=== PATIENT | female | born 1950 | race Caucasian/White ===

== ENCOUNTER 2020-05-06 17:37 | Emergency (ER) | payer MEDICARE, OTHER, SELFPAY ==
[2020-05-06 17:49] VITALS: BP 128/72; PULSE 74; RESP 19; TEMP 36.8; O2SAT 99; BMI 30.2
--- NOTE | 2020-05-06 17:59 | DI.US.S_ITS ---
PROCEDURE: US PERIPH VENOUS LOW EXTREM RT INDICATIONS: EDEMA, PAIN 6 DAYS POST RIGHT TKA TECHNIQUE: Real-time imaging, as well as color and pulse Doppler interrogation, were performed of the lower extremity deep veins from the inguinal ligament to the popliteal fossa. COMPARISON: None. FINDINGS: The common femoral, femoral and popliteal veins are normally compressible, and free of intraluminal thrombus. Color and pulse Doppler demonstrate normal phasic intraluminal flow. There is normal augmentation response to distal compression maneuver. IMPRESSION: No DVT in the right lower extremity. Dictated by: Royal Arias M.D. on 05/06/2020 at 19:06 Approved by: Royal Arias M.D. on 05/06/2020 at 19:07
--- NOTE | 2020-05-06 19:14 | ED.EXTPRO ---
HPI - Extremity Problem General Chief complaint: Extremity Problem,Nontraumatic Stated complaint: pain and redness right jones, bruised Time Seen by Provider: 05/06/20 18:09 Source: patient Mode of arrival: Family Vehicle Limitations: no limitations History of Present Illness HPI Narrative: Patient is a 69-year-old female who presents with right leg pain is and swelling. She is postop day number 6 from a total knee arthroplasty in [facility]. She said she was released from a hospital the following day is since had increasing swelling. Yesterday she noticed that her lower leg is slightly erythematous and extremely sensitive to touch is. The bandage has 1 site of seepage but no surrounding erythema. She has not had any fever or chills. MD Complaint: extremity pain and extremity swelling Related Data Home Medications Medication Instructions Recorded Confirmed aspirin [Adult Low Dose Aspirin] 81 mg PO DAILY 05/06/20 05/06/20 Previous Rx's Medication Instructions Recorded cephalexin [Keflex] 500 mg PO TID #21 cap 05/06/20 Allergies Allergy/AdvReac Type Severity Reaction Status Date / Time codeine Allergy ITCHING Verified 05/06/20 17:57 doxycycline Allergy Rash Verified 05/06/20 17:57 hydrocodone Allergy ITCHING Verified 05/06/20 17:57 meclofenamic acid Allergy ITCHING Verified 05/06/20 17:57 [From Meclomen] nitrofurantoin Allergy ITCHING Verified 05/06/20 17:57 [From Macrodantin] oxycodone Allergy ITCHING Verified 05/06/20 17:57 Review of Systems Review of Systems Narrative: GENERAL: Denies chills, fatigue, malaise, fever, sweats, travel HEENT: Denies sinus pain, ear pain, sore throat, difficulty swallowing, neck pain RESPIRATORY: Denies dyspnea, cough, wheezing, hemoptysis, sputum. CARDIOVASCULAR: Denies chest pain, palpitations, orthopnea, edema GASTROINTESTINAL: Denies nausea, vomiting, abdominal pain, diarrhea, constipation, melena. : Denies dysuria, frequency, incontinence, hematuria, urinary retention, flank pain. MUSCULOSKELETAL: Denies weakness, joint pain, or bony pain SKIN: See HPI NEUROLOGIC: Denies weakness, dizziness, headache, numbness, change in speech, confusion PSYCHIATRIC: No concerning psychosocial issues. 12 point review of systems is negative except for those stated above and HPI Patient History Social History Smoking Status: Never smoker Smoking Status: Never smoker alcohol intake frequency: 0-2 drinks per day Alcohol type: wine Substance Use Type: does not use Exam Initial Vital Signs Initial Vital Signs: Vital Signs Temperature 98.2 F 05/06/20 17:49 Pulse Rate 74 05/06/20 17:49 Respiratory Rate 19 05/06/20 17:49 Blood Pressure 128/72 05/06/20 17:49 Pulse Oximetry 99 05/06/20 17:49 GENERAL: Well-appearing, well-nourished and in no acute distress. HEENT: Head atraumatic,EOMI, pupils reactive, face symmetric, moist mucous membranes CARDIOVASCULAR: Regular rate and rhythm without murmurs, rubs or gallops. RESPIRATORY: Breath sounds equal bilaterally, no wheezes rales or rhonchi. ABDOMEN: Soft, nontender. Normoactive bowel sounds all 4 quadrants. No guarding or rebound. EXTREMITIES: Normal range of motion, no clubbing or edema. Neurovascularly intact The swelling noted of right leg decreased range of movement of right knee. Minimal erythema just above ankle to mid jones. This is very sensitive to touch previous scars are noted no erythema over the incision site. Distal pedal pulse is felt she does have some contusion around the right heel. NEUROLOGICAL: Alert and oriented x4.Normal gait and speech. SKIN: Warm, dry, no laceration, no petechiae, no rashes or lesions. Course Orders Ordered: ED Orders 05/06/20 17:59 US periph venous low extrem rt Stat 05/06/20 20:00 C-Reactive Protein Quant Stat Complete Blood Count AUTO DIFF Stat Comprehensive Metabolic Panel Stat Erythrocyte Sedimentation Rate Stat Procalcitonin Stat 05/06/20 20:30 Blood Culture Stat Discontinued Medications Cefazolin Sodium (Cephalexin 250 Mg Prepack) 1 bottle MISC SEEINSTR ONE Stop: 05/06/20 21:57 Last Admin: 05/06/20 22:06 Dose: 250 mg Documented by: ZULEYKA Ketorolac Tromethamine (Ketorolac 60 Mg/2 Ml Vial) 30 mg IV NOW ONE Stop: 05/06/20 21:48 Last Admin: 05/06/20 21:58 Dose: 30 mg Documented by: ZULEYKA Tramadol HCl (Tramadol 50 Mg Tablet) 50 mg PO NOW ONE Stop: 05/06/20 21:48 Last Admin: 05/06/20 21:58 Dose: 50 mg Documented by: ZULEYKA Vital Signs Vital signs: Vital Signs - 8 hr 05/06/20 17:49 05/06/20 22:20 Temperature 98.2 F Pulse Rate 74 79 Respiratory Rate 19 14 Blood Pressure 128/72 133/69 Pulse Oximetry 99 98 MDM - Extremity (Nontraumatic) Lab Data Result diagrams: 05/06/20 20:00 05/06/20 20:00 Labs: Lab Results 05/06/20 05/06/20 05/06/20 Range/Units 20:00 20:00 20:00 WBC 6.9 (4.5-11.0) X10^3/uL RBC 3.56 L (4.0-5.2) X10^6/uL Hgb 12.1 (12.0-16.0) g/dL Hct 35.6 L (36-46) % MCV 100.2 H (80-100) fL MCH 34.0 (26-34) PG MCHC 33.9 (30-36) % RDW 13.0 (11.6-14.8) % Plt Count 319 (150-400) X10^3/uL Neut % (Auto) 60.5 (50-75) % Lymph % (Auto) 23.9 L (25-40) % Mayes % (Auto) 12.5 (3-14) % Eos % (Auto) 2.2 (2-4) % Baso % (Auto) 0.9 (0-2) % Neut # (Auto) 4200 (7279-8830) /uL Lymph # (Auto) 1700 (7493-1793) /uL Mayes # (Auto) 900 (0-900) /uL Eos # (Auto) 200 (0-450) /uL Baso # (Auto) 100 (0-100) /uL ESR 35 H (0-20) MM/HR Sodium 135 L (137-145) mmol/L Potassium 4.6 (3.4-5.1) mmol/L Chloride 103 (98-107) mmol/L Carbon Dioxide 30 (22-32) mmol/L BUN 18 H (7-17) mg/dL Creatinine 0.54 (0.52-1.04) mg/dL Estimated GFR > 60.0 (>60) mL/min BUN/Creatinine Ratio 33.3 H (6-22) Glucose 97 (80-110) mg/dL Calcium 9.2 (8.4-10.2) mg/dL Total Bilirubin 0.8 (0.2-1.3) mg/dL AST 31 (14-36) IU/L ALT 27 (<35) IU/L Alkaline Phosphatase 87 (38-126) U/L C-Reactive Protein 2.3 H (<1.0) mg/dL Total Protein 7.0 (6.3-8.2) g/dL Albumin 3.9 (3.5-5.0) g/dL Globulin 3.1 (1.7-4.1) g/dL Albumin/Globulin Ratio 1.3 (1.0-2.8) Procalcitonin < 0.05 (<0.5) ng/mL Imaging Data US - DVT: Radiologist's Impression: PROCEDURE: US PERIPH VENOUS LOW EXTREM RT INDICATIONS: EDEMA, PAIN 6 DAYS POST RIGHT TKA TECHNIQUE: Real-time imaging, as well as color and pulse Doppler interrogation, were performed of the lower extremity deep veins from the inguinal ligament to the popliteal fossa. COMPARISON: None. FINDINGS: The common femoral, femoral and popliteal veins are normally compressible, and free of intraluminal thrombus. Color and pulse Doppler demonstrate normal phasic intraluminal flow. There is normal augmentation response to distal compression maneuver. IMPRESSION: No DVT in the right lower extremity. Dictated by: Royal Arias M.D. on 05/06/2020 at 19:06 MDM Narrative Medical decision making narrative: Patient is a not have a DVT. She has erythema on her anterior jones which at appears to be quite sensitive to touch and new this looks like cellulitis. There does not appear to be any infection over the incision or the joint. No sign of sepsis. No DVT is found 2144 Dr. Cho orthopedic magnetic resonance imaging director for her orthopedic has been updated patient's symptoms test results agrees with starting her on Keflex for a probable cellulitis. Discharge Plan Departure Patient Disposition: Home Clinical Impression: Cellulitis of leg, right Instructions: DI for Cellulitis -- Adult Activity Restrictions/Additional Instructions: *You have been diagnosed with cellulitis right anterior leg *What to do: Start taking antibiotics. Monitor for worsening redness specifically over the incision or joint. *Continue to take medications as directed Keflex 500 mg 3 times a day for 7 days *Follow up with your primary care provider in 2-3 days Follow-up with your Orthopedics as previously scheduled for this week *Return to ER if you should have increasing redness, pain, fever or any new, worsening or concerning symptoms Prescriptions: New cephalexin [Keflex] 500 mg capsule 500 mg PO TID Qty: 21 RF: 0 No Action Adult Low Dose Aspirin 81 mg Tablet 81 mg PO DAILY RF: 0
[2020-05-06 20:07] LABS: Add Manual Diff / Slide Review NO; Basophils Absolute Auto 100 /uL (0-100); Basophils Percent Auto 0.9 % (0-2); Eosinophils Absolute Auto 200 /uL (0-450); Eosinophils Percent Auto 2.2 % (2-4); Hematocrit 35.6 % (36-46); Hemoglobin 12.1 g/dL (12.0-16.0); Lymphocytes Absolute Auto 1700 /uL (1100-4500); Lymphocytes Percent Auto 23.9 % (25-40); Mean Corpuscular HGB Conc 33.9 % (30-36); Mean Corpuscular Volume 100.2 fL (80-100); Monocytes Absolute Auto 900 /uL (0-900); Monocytes Percent Auto 12.5 % (3-14); Neutrophils Absolute Auto 4200 /uL (1500-7000); Neutrophils Percent Auto 60.5 % (50-75); Platelet Count 319 X10^3/uL (150-400); Red Blood Cell Count 3.56 X10^6/uL (4.0-5.2); White Blood Cell Count 6.9 X10^3/uL (4.5-11.0)
[2020-05-06 20:23] LABS: Alanine Aminotransferase 27 IU/L (<35); Albumin 3.9 g/dL (3.5-5.0); Albumin Globulin Ratio 1.3 (1.0-2.8); Alkaline Phosphatase 87 U/L (38-126); Aspartate Aminotransferase 31 IU/L (14-36); BUN Creatinine Ratio 33.3 (6-22); Bilirubin Total 0.8 mg/dL (0.2-1.3); Blood Urea Nitrogen 18 mg/dL (7-17); C-Reactive Protein Quant 2.3 mg/dL (<1.0); Calcium 9.2 mg/dL (8.4-10.2); Carbon Dioxide 30 mmol/L (22-32); Chloride 103 mmol/L (98-107); Estimated Glomerular Filt Rate > 60.0 mL/min (>60); Globulin 3.1 g/dL (1.7-4.1); Glucose 97 mg/dL (80-110); HEMOLYSIS < 15 (0-50); Potassium 4.6 mmol/L (3.4-5.1); Sodium 135 mmol/L (137-145)
[2020-05-06 20:50] LABS: Erythrocyte Sedimentation Rate 35 MM/HR (0-20); Procalcitonin < 0.05 ng/mL (<0.5)
[2020-05-06] MEDS: KETOROLAC 60 MG/2 ML VIAL 30 MG IV (21:58)
[2020-05-06] MEDS: TRAMADOL 50 MG TABLET PO (21:58)
[2020-05-06] MEDS: cephALEXin 250 MG PREPACK 1 BOTTLE MISC (22:06)
[2020-05-06 22:20] VITALS: BP 133/69; PULSE 79; RESP 14; O2SAT 98
== END 2020-05-06 22:23 | disposition home or self-care (01) ==
PROVIDERS: Emergency Provider Emergency Medicine
DX: L03.115 Cellulitis of right lower limb (principal); Z96.651 Presence of right artificial knee joint
CPT/HCPCS: 36415; 80053; 84145; 85025; 85651; 86140; 87040; 93971; 96374; 99283; 99284; J1885

== ENCOUNTER → 2020-11-15 11:00 | Outpatient (CLI) | payer MEDICARE, OTHER, SELFPAY | PROVIDERS: Referring Provider Orthopaedic Surgery; Visit Provider Orthopaedic Surgery | DX: M54.2 Cervicalgia (principal) | CPT/HCPCS: 95886; 95910 ==

== ENCOUNTER → 2022-06-19 11:21 | Outpatient (CLI) | payer MEDICARE, OTHER, SELFPAY ==
--- NOTE | 2022-06-19 | DI.MRI.S_ITS ---
PROCEDURE: MR LUMBAR SPINE WO CON INDICATIONS: Radiculopathy, lumbar region TECHNIQUE: Noncontrast sagittal T1 spin echo and T2 fast echo, sagittal STIR, and T2 fast spin echo through the lumbar spine. In cases with scoliosis, additional coronal T2 fast spin echo may be performed. COMPARISON: None. FINDINGS: Image quality: Excellent. Alignment and Curvature: There is normal bony alignment. Bone Marrow: Degenerative chronic endplate changes present, particularly at L2-3 Spinal Cord: Conus medullaris terminates at the L1 level. Visualized cord demonstrates normal signal and size. Paraspinous Soft Tissues: No paravertebral masses. T12-L1: Normal appearance. L1-L2: Disc space narrowing and circumferential disc bulge with hypertrophic facet joints results in moderate central stenosis. Moderate right and left foraminal stenosis present. L2-L3: Disc space narrowing and circumferential disc bulge results in mild central stenosis. Moderate bilateral foraminal stenosis L3-L4: Disc space narrowing and circumferential disc bulge with hypertrophic facet joints present. Mild central stenosis. Moderate bilateral foraminal stenosis. Possible small 2-3 mm disc fragment noted in the right lateral recess on image 5/19 L4-L5: Disc space narrowing and posterior asymmetric right disc bulge combines with hypertrophic facet joints results in effacement of the right lateral recess. Moderate bilateral foraminal stenosis. L5-S1: Normal appearance. IMPRESSION: Multilevel degenerative disc disease and arthropathy results in varying degrees of central and foraminal stenosis including moderate central stenosis at L1-2. Possible small 2-3 mm disc fragment present in the right lateral recess of L3-4 Approved by: Orion Pollard M.D. on 06/19/2022 at 17:37
== END ==
PROVIDERS: Referring Provider Physical Medicine & Rehabilitation Pain Medicine; Visit Provider Physical Medicine & Rehabilitation Pain Medicine
DX: M51.16 Intervertebral disc disorders with radiculopathy, lumbar region (principal); M47.26 Other spondylosis with radiculopathy, lumbar region; M48.061 Spinal stenosis, lumbar region without neurogenic claudication
CPT/HCPCS: 72148

== ENCOUNTER → 2022-10-16 09:22 | Outpatient (CLI) | payer MEDICARE, OTHER, SELFPAY ==
--- NOTE | 2022-10-16 09:23 | DI.RAD.S_ITS ---
PROCEDURE: XR KUB INDICATIONS: Kidney stones TECHNIQUE: One view of the abdomen acquired. COMPARISON: [facility] [place], CR, XR LUMBAR SPINE WITH OBLIQUES PLUS FLEXION EXTENSION, 06/10/2022, 11:33. FINDINGS: Surgical changes and devices: None. Bowel: Bowel gas pattern is nonobstructive. Soft tissues: Multiple oval densities project over the left abdomen. There is a 1.0 cm oval calcification projecting just medial to the left iliac crest seen on the prior lumbar spine radiographic series. Remaining oval densities are less dense compared to the calcification and also project over bowel. Findings may represent additional soft tissue calcifications versus dense ingested material within bowel. Visualized solid organ contours appear normal in size. Bones: No suspicious bony lesions. IMPRESSION: 1. Multiple oval densities projecting over the left abdomen and left lower pelvis. These are noted within areas of bowel and may represent ingested material. Of these densities, there is a stable 1.0 cm oval calcification projecting medial to the left iliac crest which may represent a urolith. No prior cross-sectional imaging available to confirm. Dictated by: Oskar Tyler M.D. on 10/16/2022 at 13:41 Approved by: Oskar Tyler M.D. on 10/16/2022 at 13:53
== END ==
PROVIDERS: PCP Family Medicine; Referring Provider Urology; Visit Provider Urology
DX: N20.0 Calculus of kidney (principal); N39.46 Mixed incontinence; R35.0 Frequency of micturition; R30.0 Dysuria; Z87.440 Personal history of urinary (tract) infections; Z87.442 Personal history of urinary calculi; Z98.890 Other specified postprocedural states; Z92.29 Personal history of other drug therapy
CPT/HCPCS: 74018; 99214

== ENCOUNTER → 2022-10-24 13:16 | Outpatient (CLI) | payer MEDICARE, OTHER, SELFPAY ==
[2022-10-24 13:51] LABS: Bacteria Urine Moderate (10-30); Culture Indicated Urine Specimen Cultured; RBC Urine None Seen (0-5/HPF); Squamous Epithelial Cell Urine 0-1 /HPF (0-5/HPF); WBC Urine 30-100/HPF (0-5/HPF)
== END ==
PROVIDERS: PCP Family Medicine; Referring Provider Specialist; Visit Provider Specialist
DX: N39.46 Mixed incontinence (principal); Z87.440 Personal history of urinary (tract) infections
CPT/HCPCS: 81015; 87077; 87086; 87186

== ENCOUNTER → 2022-11-05 10:34 | Outpatient (CLI) | payer MEDICARE, OTHER, SELFPAY ==
--- NOTE | 2022-11-05 10:35 | DI.CT.S_ITS ---
PROCEDURE: CT KIDNEY URETER BLADDER (KUB) INDICATIONS: urinary incontinence TECHNIQUE: Axial sections were acquired from the lung bases to the pubic symphysis. Coronal and sagittal reformats were performed. For radiation dose reduction, the following was used: automated exposure control, adjustment of mA and/or kV according to patient size. COMPARISON: [facility], , XR KUB, 10/16/2022, 9:28. FINDINGS: Image quality: Excellent. Lung bases: Unremarkable. Small hiatal hernia. Heart: No significant findings. URINARY: Right Kidney: No stones or hydronephrosis. Right Ureter: No ureteral stones or hydroureter. Left Kidney: There is a 3 mm stone in left kidney demonstrating CT density 355 HU. No hydronephrosis. Left Ureter: No ureteral stones are hydroureter. Bladder: Normal wall thickness. No stones. ABDOMEN: Liver: Unremarkable. Gallbladder: Unremarkable. Biliary ducts: Unremarkable. Pancreas: Unremarkable. Spleen: Unremarkable. Adrenal Glands: Unremarkable. Stomach and Bowel: Stomach, small bowel loops, and colon are normal in caliber. Mild diverticulosis. No acute diverticulitis. There is a large amount stool in colon. The appendix is not. Peritoneum: No abnormal intraperitoneal fluid. No free air. Ventral Wall: No hernia. Abdominal Nodes: No enlarged retroperitoneal lymph nodes. There is a 1 cm mesenteric lymph node in the right lower quadrant. Vessels: Aorta and inferior vena cava are normal in size. PELVIS: Pelvic Organs: Unremarkable. Pelvic Nodes: Unremarkable. Miscellaneous: No inguinal hernias are seen. Bones: Degenerative changes in lumbar spine. Left hip arthroplasty. IMPRESSION: 1. The cause for urinary incontinence is not identified on CT. 2. A 3 mm nonobstructive stone in left kidney. 3. Mild diverticulosis. No diverticulitis. 4. A borderline enlarged right lower quadrant mesenteric lymph node, most likely reactive. Dictated by: Mary Ramirez M.D. on 11/05/2022 at 12:54 Approved by: Mary Ramirez M.D. on 11/05/2022 at 13:11
== END ==
PROVIDERS: PCP Family Medicine; Referring Provider Urology; Visit Provider Urology
DX: N20.0 Calculus of kidney (principal); K57.90 Diverticulosis of intestine, part unspecified, without perforation or abscess without bleeding; R59.0 Localized enlarged lymph nodes
CPT/HCPCS: 74176

== ENCOUNTER → 2023-01-28 18:46 | Outpatient (CLI) | payer MEDICARE, OTHER, SELFPAY ==
--- NOTE | 2023-01-28 | DI.MRI.S_ITS ---
PROCEDURE: MR HIP LT WO CON INDICATIONS: Spinal stenosis / Spondylolisthesis / hip weakness TECHNIQUE: Noncontrast coronal T1 spin echo and STIR through the bony pelvis. Coronal and axial STIR, sagittal T1 spin echo, and oblique axial STIR through the hip. COMPARISON: [facility], CT, CT KIDNEY URETER BLADDER (KUB), 11/05/2022, 10:40. FINDINGS: Image quality: Images are mildly degraded by expected metallic artifact related to the hip prosthesis despite utilization of metal artifact reduction sequences. Diagnostic information is obtained. Bones and joints: Left hip arthroplasty is seen with associated metal artifact that obscures adjacent structures. No large joint effusion or periarticular mass. There is a chronic nonedematous displaced fracture of the greater trochanter. The displaced osseous fragment remains continuous with a portion of the gluteus medius tendon. Bone marrow of the pelvic ring and proximal femurs show normal signal throughout. No intraosseous lesions or fractures. No avascular necrosis of the femoral heads. Multilevel degenerative endplate changes and facet hypertrophy are seen in the lumbar spine. Tendons and ligaments: There is partial tearing of the gluteus medius and minimus tendons at their distal insertions. A portion of the gluteus medius tendon is continuous with the chronic displaced greater trochanter fracture. Small amount of trochanteric and subgluteal bursal fluid is present. Chronic asymmetric atrophy of the left gluteus medius and minimus muscles. The proximal iliotibial band appears intact. The iliopsoas tendon appears intact, without adjacent bursal fluid collections. The origin of the left hamstring tendon demonstrates mild tendinosis. The direct and indirect heads of the rectus femoris muscle origin appear intact. Soft tissues: Mild asymmetric atrophy of the left gluteus medius and minimus muscles. The remaining visualized musculature is symmetric in signal intensity and bulk. Quadratus femoris muscle demonstrates no internal edema to suggest ischiofemoral impingement. The proximal sciatic neurovascular bundle appears intact. Mild colonic diverticulosis. A tampon is noted in the vagina. No acute abnormality is seen in the included portions of the pelvis. IMPRESSION: 1. Postsurgical changes from left total hip arthroplasty with associated metal artifact. No significant joint effusion or periarticular mass is seen. No acute osseous edema. 2. Chronic displaced fracture of the left greater tuberosity. The nonedematous fracture fragment is continuous with a portion of the gluteus medius tendon. 3. Partial tearing of the distal left gluteus medius and minimus tendons at their distal insertions with mild surrounding fluid. [id number] chronic atrophy of the left gluteus medius and minimus muscles. 4. Left proximal hamstring tendinosis. 5. Degenerative changes are seen in the included lumbar spine. Approved by: Luis Sparks M.D. on 01/29/2023 at 13:38
--- NOTE | 2023-01-28 | DI.MRI.S_ITS ---
PROCEDURE: MR LUMBAR SPINE WO CON INDICATIONS: Spinal stenosis / Spondylolisthesis / hip weakness TECHNIQUE: Noncontrast sagittal T1 spin echo and T2 fast echo, sagittal STIR, and T2 fast spin echo through the lumbar spine. In cases with scoliosis, additional coronal T2 fast spin echo may be performed. COMPARISON: [facility], MR, MR LUMBAR SPINE WO CON, 06/19/2022, 11:52. FINDINGS: Image quality: Excellent. Alignment and Curvature: Slight increase in anterolisthesis of L1 on L2, still in the 3 mm. Trace retrolisthesis of L2 on L3 and L3 on L4. Bone Marrow: Marrow is of normal overall signal. No acute vertebral body compression fractures. Spinal Cord: Conus medullaris terminates at the lower L1 level. Visualized cord demonstrates normal signal and size. Paraspinous Soft Tissues: No paravertebral masses. T12-L1: Normal appearance. L1-L2: Slight interval increase in anterolisthesis of L1 on L2. It is still mild. Underlying facet hypertrophy. Persistent moderately large diffuse disc bulge with interval decrease in superimposed right paracentral disc protrusion. There is epidural lipomatosis. There is moderate central canal stenosis and moderate to severe right lateral recess stenosis. There is moderate bilateral foraminal narrowing with mild flattening deformity on the exiting bilateral L1 nerve roots. L2-L3: Unchanged. Disc height loss. Disc bulge. Facet and ligament hypertrophy. Epidural lipomatosis. Borderline canal stenosis. [id number] bilateral foraminal stenosis. L3-L4: Unchanged. Severe disc height loss. Posterior disc post osteophyte. Facet hypertrophy. Epidural lipomatosis. Borderline canal stenosis. Again noted is a small free disc fragment in the right lateral recess inferior to the disc level impinging on the right L4 nerve root in the right lateral recess. No foraminal stenosis. L4-L5: Unchanged findings. Severe disc height loss. Posterior disc post osteophyte. Facet hypertrophy. Right posterior osteophyte plus facet hypertrophy result in right lateral recess stenosis. There is moderate bilateral foraminal stenosis. L5-S1: Unchanged findings. Severe chronic disc height loss. Disc bulge. Facet hypertrophy. No canal stenosis or significant foraminal stenosis. IMPRESSION: 1. There is underlying multilevel facet arthropathy and severe multilevel disc height loss. 2. Canal stenosis is unchanged at L1-L2. A disc protrusion has improved. However, anterolisthesis of L1 on L2 has increased. Multifactorial canal stenosis, including epidural lipomatosis, continues to result in moderate central canal stenosis and moderate to severe right lateral recess stenosis. 3. Arising from the L3-L4 level, there is a small persistent free disc fragment inferior to the disc space in the right lateral recess impinging on the right L4 nerve root in the right lateral recess. 4. Unchanged right lateral recess stenosis at L4-L5. 5. Multilevel foraminal narrowing as described above. Dictated by: Dharmesh Avila M.D. on 01/29/2023 at 10:34 Approved by: Dharmesh Avila M.D. on 01/29/2023 at 10:48
== END ==
PROVIDERS: PCP Family Medicine; Referring Provider Orthopaedic Surgery; Visit Provider Orthopaedic Surgery
DX: S72.112A Displaced fracture of greater trochanter of left femur, initial encounter for closed fracture (principal); S76.012A Strain of muscle, fascia and tendon of left hip, initial encounter; M47.816 Spondylosis without myelopathy or radiculopathy, lumbar region; M47.817 Spondylosis without myelopathy or radiculopathy, lumbosacral region; M48.061 Spinal stenosis, lumbar region without neurogenic claudication; M62.58 Muscle wasting and atrophy, not elsewhere classified, other site; M51.26 Other intervertebral disc displacement, lumbar region; M43.16 Spondylolisthesis, lumbar region; M43.17 Spondylolisthesis, lumbosacral region; M25.552 Pain in left hip; G89.29 Other chronic pain; Z96.642 Presence of left artificial hip joint
CPT/HCPCS: 72148; 73721

== ENCOUNTER → 2023-09-28 12:22 | Outpatient (CLI) | payer MEDICARE, OTHER, SELFPAY ==
--- NOTE | 2023-09-28 12:35 | DI.MRI.S_ITS ---
PROCEDURE: MR SHOULDER LT WO CON INDICATIONS: ROTATOR CUFF SYNDROME LEFT TECHNIQUE: Noncontrast oblique coronal T2 fast spin echo with fat saturation, oblique sagittal T1 spin echo and T2 fast spin echo with fat saturation, axial T1 spin echo and T2 fast spin echo with fat saturation through the shoulder. COMPARISON: None. FINDINGS: Image quality: Excellent. Rotator cuff: Moderate grade articular surface partial-thickness tear involving distal supraspinatus at its insertion on the humeral head is seen extending to musculotendinous junction. Full-thickness perforation involving most posterior fibers of distal supraspinatus at its insertion on the humeral head is seen with up to 7 mm medial retraction of torn tendon fibers and a fluid-filled gap measures 5 mm in AP dimension. Low-grade articular surface partial-thickness tear involving distal infraspinatus at its insertion on the humeral head is noted. The subscapularis tendon is intact. Sagittal images demonstrate mild to moderate supraspinatus muscle atrophy. Bones and bursae: No bone marrow contusions or fractures. Moderate acromioclavicular joint osteoarthritic changes are seen with joint space narrowing and downward osteophyte formation depressing the musculotendinous junction of supraspinatus. Small to moderate amount of subacromial subdeltoid bursal fluid is seen. No gross loose bodies. Capsule and soft tissues: Signal abnormality and fraying of anterior inferior labrum at 4 to 6 o'clock position is seen concerning for anterior-inferior labral tear. The long head of the biceps tendon demonstrates normal location and morphology. The rotator interval appears normal, without fibrosis. The coracohumeral ligament is normal in thickness. IMPRESSION: 1. Moderate grade articular surface partial-thickness tear involving distal supraspinatus extending to musculotendinous junction with focal full-thickness perforation involving most posterior fibers of distal supraspinatus at its insertion on the humeral head with up to 7 mm medial retraction of torn tendon fibers as above. Mild to moderate supraspinatus muscle atrophy. 2. Low-grade articular surface partial-thickness tear involving distal supraspinatus. 3. Moderate acromioclavicular joint osteoarthritis. No fracture or dislocation. Small to moderate amount of subacromial subdeltoid bursal fluid, no gross loose bodies. 4. Suggestion of anterior-inferior labral tear at 4 to 6 o'clock position. Dictated by: Nick Loyola M.D. on 09/28/2023 at 13:34 Approved by: Nick Loyola M.D. on 09/28/2023 at 14:13
== END ==
PROVIDERS: PCP Family Medicine; Referring Provider Orthopaedic Surgery; Visit Provider Orthopaedic Surgery
DX: M75.112 Incomplete rotator cuff tear or rupture of left shoulder, not specified as traumatic (principal); M19.012 Primary osteoarthritis, left shoulder
CPT/HCPCS: 73221

== ENCOUNTER → 2023-11-20 09:38 | Outpatient (CLI) | payer MEDICARE, OTHER, SELFPAY ==
--- NOTE | 2023-11-20 09:39 | DI.RAD.S_ITS ---
PROCEDURE: XR FOOT RT MIN 3V INDICATIONS: pain of 2nd toe on right foot TECHNIQUE: 3 views of the foot were acquired. COMPARISON: None. FINDINGS: Bones: Abnormal articulation of the 2nd metatarsal joint, suspected dislocation. First MTP joint space narrowing with osteophytosis. Interphalangeal joint space narrowing with osteophytosis. Soft tissues: No tibiotalar joint effusion. Achilles tendon appears normal. IMPRESSION: Suspected dislocation of the 2nd metatarsal joint. 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 Dictated by: Shay Ward M.D. on 11/20/2023 at 10:46 Approved by: Shay Ward M.D. on 11/20/2023 at 10:49
== END ==
LOC: RAD 09:39
PROVIDERS: PCP Family Medicine; Referring Provider Family Medicine; Visit Provider Family Medicine
DX: M19.071 Primary osteoarthritis, right ankle and foot (principal); M79.674 Pain in right toe(s)
CPT/HCPCS: 73630

== ENCOUNTER → 2023-12-04 11:11 | Outpatient (CLI) | payer MEDICARE, OTHER, SELFPAY ==
--- NOTE | 2023-12-04 11:13 | DI.MG.S_ITS ---
BILATERAL DIGITAL SCREENING MAMMOGRAM 3D/2D WITH CAD: 12/04/2023 CLINICAL: Routine screening. Family history of breast cancer. No prior exams were available for comparison. Both breasts are heterogeneously dense, which may obscure small masses (category c / 51-75% glandular tissue). Current study was also evaluated with a Computer Aided Detection (CAD) system. There are benign post operative findings in the left breast. No significant masses, calcifications, or other findings are seen in either breast. IMPRESSION: BENIGN There is no mammographic evidence of malignancy. A 1 year screening mammogram is recommended. Based on the Tyrer Cuzick model (a risk assessment model) the patient's lifetime risk is 12.0% and her 10 year risk is 9.1%. According to the ACR, ACS, and NCCN guidelines, an annual breast MRI exam along with mammogram is recommended if the patient's lifetime risk is 20% or greater. This exam was interpreted at Station ID: [id number]. NOTE: For mammograms, a report in lay terms will be sent to the patient. Approximately 15% of breast malignancies will not be visualized mammographically. In the management of a palpable breast mass, a negative mammogram must not discourage biopsy of a clinically suspicious lesion. Electronically Signed By: Bud hernandez/andriy:12/10/2023 16:03:09 letter sent: Normal Exam ACR BI-RADS Category 2: Benign Finding(s) 3342F
--- NOTE | 2023-12-04 11:13 | DI.RAD.S_ITS ---
PROCEDURE: XR DEXA AXIAL SKELETON INDICATIONS: Osteoporosis COMPARISON: None. FINDINGS: Lumbar Spine: Bone mineral density 1.085 g/cm2, T score 0.3, normal. Right Hip: Bone mineral density 0.832 g/cm2, T score -0.9, normal. Right Femoral Neck: Bone mineral density 0.688 g/cm2, T score -1.5, normal. Left Forearm: Bone mineral density 0.636 g/cm2, T score -1 point, normal. Fracture Risk Calculation (when applicable): 10-year fracture risk of a major osteoporotic fracture 16% and of a hip fracture 2.4%. (T score greater or equal to -1.0 to: NORMAL) (T score from -1.1 to -2.4: OSTEOPENIA) (T score less than or equal to -2.5: OSTEOPOROSIS) IMPRESSION: Based on WHO criteria, the patient has osteopenia and increased risk for osteoporotic fractures. Follow-up guidelines as follows: Osteoporosis: Consider a repeat DEXA and Vertebral Fracture Assessment (VFA) exam in 2 years or sooner if medically necessary, to reassess this patient's status. Osteopenia: Consider a repeat DEXA in 2-3 years to reassess this patient's status, or if there is a new clinical indication. Normal: Consider a repeat DEXA in 5 years or sooner, or if there is a new clinical indication. All treatment decisions require clinical judgment and consideration of individual patient factors, including patient preferences, comorbidities, previous drug use, risk factors not captured in the FRAX model (e.g., frailty, falls, vitamin D deficiency, increased bone turnover, interval significant decline in bone density ) and possible under- or over-estimation of fracture risk by FRAX. In addition, the NOF Guide recommends that FDA-approved medical therapies be considered in postmenopausal women and men age >= 50 years with a: * Hip or vertebral (clinical or morphometric) fracture * T-score of <=-2.5 at the spine or hip * Ten-year fracture probability by FRAX of >= 3% for hip fracture or >=20% for major osteoporotic fracture. People with diagnosed cases of osteoporosis or at high risk for fracture should have regular bone mineral density tests. For patients eligible for Medicare, routine testing is allowed once every 2 years. The testing frequency can be increased to one year for patients who have rapidly progressing disease, those who are receiving or discontinuing medical therapy to restore bone mass, or have additional risk factors. Dictated by: Mary Ramirez M.D. on 12/04/2023 at 15:26 Approved by: Mary Ramirez M.D. on 12/04/2023 at 15:28
== END ==
PROVIDERS: PCP Family Medicine; Referring Provider Family Medicine; Visit Provider Family Medicine
DX: Z12.31 Encounter for screening mammogram for malignant neoplasm of breast (principal); Z80.3 Family history of malignant neoplasm of breast; R92.333 Mammographic heterogeneous density, bilateral breasts; M81.0 Age-related osteoporosis without current pathological fracture
CPT/HCPCS: 77063; 77067; 77080; 77081

== ENCOUNTER → 2023-12-09 13:05 | Outpatient (CLI) | payer MEDICARE, OTHER, SELFPAY | LOC: WC 13:08 | PROVIDERS: PCP Family Medicine; Visit Provider Surgery | DX: S81.801A Unspecified open wound, right lower leg, initial encounter (principal); L98.8 Other specified disorders of the skin and subcutaneous tissue; M20.41 Other hammer toe(s) (acquired), right foot; I87.2 Venous insufficiency (chronic) (peripheral) | CPT/HCPCS: 11042; 99203; 99213 ==

== ENCOUNTER → 2023-12-22 10:02 | Outpatient (CLI) | payer MEDICARE, OTHER, SELFPAY | PROVIDERS: PCP Family Medicine; Referring Provider Family Medicine; Visit Provider Surgery | DX: S81.811A Laceration without foreign body, right lower leg, initial encounter (principal); L98.8 Other specified disorders of the skin and subcutaneous tissue; I87.2 Venous insufficiency (chronic) (peripheral) | CPT/HCPCS: 11042 ==

== ENCOUNTER → 2024-01-04 10:21 | Outpatient (CLI) | payer MEDICARE, OTHER, SELFPAY | LOC: WC 10:23 | PROVIDERS: PCP Family Medicine; Visit Provider Surgery | DX: S81.801A Unspecified open wound, right lower leg, initial encounter (principal); L98.8 Other specified disorders of the skin and subcutaneous tissue; I87.2 Venous insufficiency (chronic) (peripheral) | CPT/HCPCS: 97597; 99213 ==

== ENCOUNTER → 2024-01-18 10:05 | Outpatient (CLI) | payer MEDICARE, OTHER, SELFPAY | LOC: WC 10:06 | PROVIDERS: PCP Family Medicine; Visit Provider Surgery | DX: S81.801A Unspecified open wound, right lower leg, initial encounter (principal); L98.8 Other specified disorders of the skin and subcutaneous tissue; I87.2 Venous insufficiency (chronic) (peripheral) | CPT/HCPCS: 11042 ==

== ENCOUNTER → 2024-02-16 09:24 | Outpatient (CLI) | payer MEDICARE, OTHER, SELFPAY | PROVIDERS: PCP Family Medicine; Visit Provider Surgery | DX: S81.801A Unspecified open wound, right lower leg, initial encounter (principal); L98.8 Other specified disorders of the skin and subcutaneous tissue; I87.2 Venous insufficiency (chronic) (peripheral) | CPT/HCPCS: 97597; 99213 ==

== ENCOUNTER → 2024-03-07 09:08 | Outpatient (CLI) | payer MEDICARE, OTHER, SELFPAY | PROVIDERS: PCP Family Medicine; Visit Provider Surgery | DX: S81.801D Unspecified open wound, right lower leg, subsequent encounter (principal) | CPT/HCPCS: 99212; 99213 ==

== ENCOUNTER → 2024-05-11 11:43 | Outpatient (CLI) | payer MEDICARE, OTHER, SELFPAY ==
[2024-05-11 12:44] LABS: Appearance Urine UA CLEAR; Bilirubin Urine UA 1+ (NEGATIVE); Color Urine UA ORANGE; Glucose Urine UA TRACE g/dL (Negative); Ketones Urine UA TRACE (NEGATIVE); Leukocyte Esterase Urine UA NEGATIVE (NEGATIVE); Nitrite Urine UA POSITIVE (Negative); Occult Blood Urine UA NEGATIVE (Negative); Protein Urine UA TRACE (Negative); Specific Gravity Urine UA >=1.030 (1.000-1.035)
[2024-05-11 12:58] LABS: Ictotest Urine Negative (Negative); Urine Volume 10mL (spun)
[2024-05-11 13:00] LABS: Bacteria Urine Few (2-10); RBC Urine None Seen (0-5/HPF); Squamous Epithelial Cell Urine 1-5 /HPF (0-5/HPF); WBC Urine None Seen (0-5/HPF)
== END ==
PROVIDERS: PCP Family Medicine; Referring Provider Urology; Visit Provider Urology
DX: Z87.440 Personal history of urinary (tract) infections (principal); Z87.442 Personal history of urinary calculi; Z87.448 Personal history of other diseases of urinary system; N36.9 Urethral disorder, unspecified; N39.0 Urinary tract infection, site not specified
CPT/HCPCS: 81001; 87086

== ENCOUNTER → 2024-06-09 18:33 | Outpatient (CLI) | payer MEDICARE, OTHER, SELFPAY | PROVIDERS: PCP Family Medicine; Visit Provider Physician Assistant Medical | DX: R30.0 Dysuria (principal) | CPT/HCPCS: 87077; 87086 ==

== ENCOUNTER → 2024-07-21 12:04 | Outpatient (CLI) | payer MEDICARE, OTHER, SELFPAY ==
[2024-07-21 14:15] LABS: Appearance Urine UA CLEAR
[2024-07-21 14:26] LABS: pH Urine UA 6.5 (4.5-8.0)
[2024-07-21 14:27] LABS: Color Urine UA ORANGE
[2024-07-21 14:28] LABS: Bacteria Urine Few (2-10); Culture Indicated Urine Cult Not Indicated; RBC Urine 0-1/HPF (0-5/HPF); Squamous Epithelial Cell Urine 0-1 /HPF (0-5/HPF); Urine Volume 10mL (spun); WBC Urine 0-1/HPF (0-5/HPF)
== END ==
PROVIDERS: PCP Family Medicine; Visit Provider Urology
DX: N30.00 Acute cystitis without hematuria (principal); Z87.440 Personal history of urinary (tract) infections
CPT/HCPCS: 81001

== ENCOUNTER → 2024-12-05 10:04 | Outpatient (CLI) | payer MEDICARE, OTHER, SELFPAY ==
--- NOTE | 2024-12-05 10:06 | DI.MG.S_ITS ---
MM screening mammo BI: 12/05/2024. BI-RADS: 1 CLINICAL: 74-year old female for bilateral screening mammogram. Tyrer-Cuzick lifetime risk of 8.3%. Current reported family history of breast cancer: sister. The patient had a prior left breast biopsy. PRIOR EXAMS 12/04/2023. MAMMOGRAPHY TECHNIQUE: 2D and 3D (tomosynthesis) digital mammographic views obtained, with additional images as needed for full coverage. Current study was also evaluated with a Computer Aided Detection (CAD) system. DENSITY C. The breasts are heterogeneously dense, which may obscure small masses. MAMMOGRAPHY FINDINGS Bilateral: No suspicious mass, asymmetry, microcalcification, or other abnormality seen. IMPRESSION: * No evidence of malignancy. RECOMMENDATIONS Bilateral * Annual screening mammography. OVERALL ASSESSMENT CATEGORY BI-RADS-1: Negative. The [employer] recommends annual screening mammography beginning at age 40 for women with average risk of breast cancer. ELECTRONICALLY SIGNED: Oskar Tyler M.D. on 12/05/2024 at 04:35:24 PM PT Interpreting Station ID: [id number]
--- NOTE | 2024-12-05 10:06 | DI.RAD.S_ITS ---
PROCEDURE: XR DEXA AXIAL SKELETON INDICATIONS: Osteoporosis COMPARISON: [facility], , XR DEXA AXIAL SKELETON, 12/04/2023, 11:42. FINDINGS: Lumbar Spine: Bone mineral density 1.136 (previously 1.085) g/cm2, T score 0.8 (previously 0.3). Right Femoral Neck: Bone mineral density 0.722 (previously 0.688) g/cm2, T score -1.1 (previously -1.5). Right Hip: Bone mineral density 0.862 (previously 0.832) g/cm2, T score -0.7 (previously -0.9). Fracture Risk Calculation (when applicable): 10-year fracture risk of a major osteoporotic fracture 15 percent and of a hip fracture 2.1 percent. (T score greater or equal to -1.0 to: NORMAL) (T score from -1.1 to -2.4: OSTEOPENIA) (T score less than or equal to -2.5: OSTEOPOROSIS) IMPRESSION: Osteopenia--- recommend repeat DEXA in 2-3 years for reassessment. Follow-up guidelines as follows: Osteoporosis: Consider a repeat DEXA and Vertebral Fracture Assessment (VFA) exam in 2 years or sooner if medically necessary, to reassess this patient's status. Osteopenia: Consider a repeat DEXA in 2-3 years to reassess this patient's status, or if there is a new clinical indication. Normal: Consider a repeat DEXA in 5 years or sooner, or if there is a new clinical indication. All treatment decisions require clinical judgment and consideration of individual patient factors, including patient preferences, comorbidities, previous drug use, risk factors not captured in the FRAX model (e.g., frailty, falls, vitamin D deficiency, increased bone turnover, interval significant decline in bone density ) and possible under- or over-estimation of fracture risk by FRAX. In addition, the NOF Guide recommends that FDA-approved medical therapies be considered in postmenopausal women and men age >= 50 years with a: * Hip or vertebral (clinical or morphometric) fracture * T-score of <=-2.5 at the spine or hip * Ten-year fracture probability by FRAX of >= 3% for hip fracture or >=20% for major osteoporotic fracture. Dictated by: Steve Parks M.D. on 12/05/2024 at 19:32 Approved by: Steve Parks M.D. on 12/05/2024 at 19:35
[2024-12-05 11:19] LABS: Add Manual Diff / Slide Review NO; Basophils Absolute Auto 100 /uL (0-100); Basophils Percent Auto 1.2 % (0-2); Eosinophils Absolute Auto 100 /uL (0-450); Eosinophils Percent Auto 1.5 % (2-4); Hematocrit 44.9 % (36-46); Hemoglobin 15.6 g/dL (12.0-16.0); Lymphocytes Absolute Auto 1900 /uL (1100-4500); Lymphocytes Percent Auto 24.3 % (25-40); Mean Corpuscular HGB Conc 34.8 % (30-36); Mean Corpuscular Hemoglobin 35.1 PG (26-34); Mean Corpuscular Volume 100.7 fL (80-100); Monocytes Absolute Auto 700 /uL (0-900); Monocytes Percent Auto 9.5 % (3-14); Neutrophils Absolute Auto 4900 /uL (1500-7000); Neutrophils Percent Auto 63.5 % (50-75); Platelet Count 453 X10^3/uL (150-400); Red Blood Cell Count 4.46 X10^6/uL (4.0-5.2); Red Cell Distribution Width 13.8 % (11.6-14.8); White Blood Cell Count 7.7 X10^3/uL (4.5-11.0)
[2024-12-05 11:36] LABS: Alanine Aminotransferase 17 IU/L (<35); Albumin 3.9 g/dL (3.5-5.0); Albumin Globulin Ratio 1.3 (1.0-2.8); Alkaline Phosphatase 77 U/L (38-126); Aspartate Aminotransferase 25 IU/L (14-36); BUN Creatinine Ratio 18.3 (6-22); Bilirubin Total 0.5 mg/dL (0.2-1.3); Blood Urea Nitrogen 13 mg/dL (7-17); Calcium 10.2 mg/dL (8.4-10.2); Carbon Dioxide 28 mmol/L (22-32); Chloride 101 mmol/L (98-107); Cholesterol 229 mg/dL (140-199); Estimated Glomerular Filt Rate > 60 mL/min (>60); Glucose 98 mg/dL (70-99); HDL Cholesterol 59 mg/dL (40-60); HEMOLYSIS < 15 (0-50); LDL Cholesterol Calculated 150 mg/dL (<100); Potassium 4.7 mmol/L (3.4-5.1); Sodium 135 mmol/L (137-145); Total Protein 6.9 g/dL (6.3-8.2); Triglycerides 98 mg/dL (35-150)
== END ==
PROVIDERS: PCP Family Medicine; Referring Provider Family Medicine; Visit Provider Family Medicine
DX: Z12.31 Encounter for screening mammogram for malignant neoplasm of breast (principal); R92.333 Mammographic heterogeneous density, bilateral breasts; Z80.3 Family history of malignant neoplasm of breast; M81.0 Age-related osteoporosis without current pathological fracture; E66.3 Overweight; Z13.6 Encounter for screening for cardiovascular disorders
CPT/HCPCS: 36415; 77063; 77067; 77080; 80053; 80061; 85025

== ENCOUNTER → 2025-06-01 14:20 | Outpatient (CLI) | payer MEDICARE, OTHER, SELFPAY ==
[2025-06-01 16:41] LABS: Clostridium Difficile Tox PCR Negative for C. diff (Negative)
== END ==
PROVIDERS: PCP Family Medicine; Referring Provider Family Medicine; Visit Provider Family Medicine
DX: R19.7 Diarrhea, unspecified (principal); E66.3 Overweight; M81.0 Age-related osteoporosis without current pathological fracture; M79.7 Fibromyalgia; N95.9 Unspecified menopausal and perimenopausal disorder; E03.9 Hypothyroidism, unspecified
CPT/HCPCS: 87045; 87329; 87493